=== PATIENT | male | born 1985 | race Caucasian/White ===

== ENCOUNTER 2017-09-13 10:17 | Emergency (ER) | payer SELFPAY ==
--- NOTE | 2017-09-13 10:30 | EDM.PDOC ---
ED HPI GENERAL MEDICAL PROBLEM - General Chief Complaint: Genitourinary Problem Stated Complaint: TESTICAL ISSUE Time Seen by Provider: 09/13/17 10:30 Source of Information: Reports: Patient History Limitations: Reports: No Limitations - History of Present Illness INITIAL COMMENTS - FREE TEXT/NARRATIVE: 31-year-old male presents to the ED with right-sided testicular pain. He's had this problem off and on for the last couple of years. Is seen multiple providers. He's been given various diagnoses including epididymitis varicoceles and intermittent torsion of the testicle. He has been treated with antibiotics in the past. He states that he noticed his testicle area becoming more painful earlier this morning. 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 He states the right testicle is very tender to touch especially with walking or bumping. Similar to the pain that he's experienced in the past. Pain radiates up into his right inguinal area. No associated nausea vomiting fever chills. He has no dysuria urgency. No pain in the left testicle. States the pain is similar when he is exposed to in the past. Onset: Today Onset Date: 09/13/17 Onset Time: 08:00 Duration: Hour(s): Location: Reports: Other (Right hemiscrotum. 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 Pelvic Pain Score (Numeric/FACES): 8 - Related Data Allergies Allergy/AdvReac Type Severity Reaction Status Date / Time Sulfa (Sulfonamide Allergy Rash Verified 09/13/17 10:27 Antibiotics) Home Meds: Home Meds Ciprofloxacin HCl [Cipro] 500 mg PO BID #20 tablet 09/13/17 [Rx] Doxycycline [Vibramycin] 100 mg PO DAILY #84 tab 09/13/17 [Rx] Multivitamin [Multi-Day Vitamins] 1 tab PO DAILY 09/13/17 [History] Past Medical History Gastrointestinal History: Reports: Other (See Below) Other Genitourinary History: intermittent testicle toersion - Past Surgical History GI Surgical History: Reports: Hernia, Inguinal Other GI Surgeries/Procedures: left inguinal hernia repair Musculoskeletal Surgical History: Reports: Other (See Below) Other Musculoskeletal Surgeries/Procedures:: tendon repair of left hand Social & Family History - Family History Family Medical History: Noncontributory - Tobacco Use Smoking Status *Q: Never Smoker - Caffeine Use Caffeine Use: Reports: Coffee - Recreational Drug Use Recreational Drug Use: No - Living Situation & Occupation Living situation: Reports: Occupation: Employed ED ROS GENERAL - Review of Systems Review Of Systems: See Below Constitutional: Denies: Fever, Chills, Malaise, Weakness, Decreased Appetite, Weight Loss HEENT: Reports: No Symptoms Respiratory: Reports: No Symptoms Cardiovascular: Reports: No Symptoms Endocrine: Reports: No Symptoms GI/Abdominal: Reports: Other (Some discomfort in the ) : Reports: Other (Pain right testicle). Denies: Discharge, Flank Pain, Frequency, Hematuria, Pain, Urgency, Urinary Retention Musculoskeletal: Reports: No Symptoms ( see history present illness) Skin: Reports: No Symptoms Neurological: Reports: No Symptoms Psychiatric: Reports: No Symptoms Hematologic/Lymphatic: Reports: No Symptoms Immunologic: Reports: No Symptoms ED EXAM, RENAL/ - Physical Exam Exam: See Below Exam Limited By: No Limitations General Appearance: Alert, WD/WN, Anxious, Mild Distress Respiratory/Chest: No Respiratory Distress, Lungs Clear, Normal Breath Sounds, No Accessory Muscle Use, Chest Non-Tender Cardiovascular: Normal Peripheral Pulses, Regular Rate, Rhythm, No Edema, No Gallop, No Murmur, No Rub GI/Abdominal: Normal Bowel Sounds, Soft, Non-Tender, No Organomegaly, No Distention, No Abnormal Bruit, No Mass, Pelvis Stable, Other (No inguinal hernia.) (Male) Exam: No Hernia, Cremasteric Reflex, Testicular Tenderness (R) ( Patient has a very tender inferior pole of the right epididymis. The testicle itself is only mildly tender to palpation. The lie of the testicle is vertical and normal. There is no obvious varicocele or hydrocele evident. Ultrasound carried out reveals homogeneous appearance of the testicle. There is definite thickening and edema of the lower pole of the epididymis but normal superior pole of the epididymis on ultrasound. Fluid within the scrotal sac no hydroceles appreciated. No varicoceles identified. Diagnosis acute recurrent epididymitis right side) Back Exam: Normal Inspection, Full Range of Motion. No: CVA Tenderness (L), CVA Tenderness (R) Extremities: Normal Inspection, Normal Range of Motion, Non-Tender, No Pedal Edema, Normal Capillary Refill Neurological: Alert, Oriented, CN II-XII Intact, Normal Cognition Psychiatric: Normal Affect, Normal Mood Skin Exam: Warm, Dry, Intact, Normal Color, No Rash Course - Vital Signs Last Recorded V/S: Last Vital Signs Temp 36.6 C 09/13/17 10:23 Pulse 92 09/13/17 10:23 Resp 20 09/13/17 10:23 BP 144/95 H 09/13/17 10:23 Pulse Ox 99 09/13/17 10:23 - Radiology Interpretation Free Text/Narrative:: 31-year-old male presents to the ED with right-sided scrotal pain. Is able to localize it very well to the inferior pole of his right epididymis. Clinically he is developed recurrent epididymitis. He does not have any evidence of testicular torsion. He has good blood flow to the testicle on Doppler ultrasound performed at the bedside by me. Testicular has a normal homogeneous texture without any signs of cancer or abnormalities. The superior pole of the epididymis is also within normal limits. Treatment is to be 6 weeks of antibiotics. 10 days of Cipro 500 mg twice a day and 6 weeks of doxycycline 100 mg twice a day to try and bring this chronic infection under control. The source of the infection is going to be his prostate gland. Patient counseled at length. Follow-up if not markedly improved in 10 days' time or sooner if the pain worsens. Departure - Departure Time of Disposition: 10:49 Disposition: Home, Self-Care 01 Condition: Fair Clinical Impression: Epididymitis - Discharge Information *PRESCRIPTION DRUG MONITORING PROGRAM REVIEWED*: Not Applicable *COPY OF PRESCRIPTION DRUG MONITORING REPORT IN PATIENT MALENA: Not Applicable Prescriptions: Ciprofloxacin HCl [Cipro] 500 mg PO BID #20 tablet Doxycycline [Vibramycin] 100 mg PO DAILY #84 tab Instructions: Epididymitis Referrals: PCP,None [Primary Care Provider] - Forms: ED Department Discharge Additional Instructions: Evaluation the emergency room today in regards to acute onset of right testicular pain. Examination reveals engorgement and pain well localized to the inferior pole of the right testicle or the epididymis. The testicle itself is not swollen. Ultrasound done at the bedside reveals a normal testicle with normal blood flow with no signs of torsion. The epididymis in. Pole is markedly edematous and swollen. Superior pole is normal. History suggests you've had this problem recurrently which suggests recurrent epididymitis. Note the primary problem is usually prostatitis meaning that there is infection in the prostate gland which makes most of the secretions of semen. The infection and travels retrograde through the vas deferens down towards the testicle and causes recurrent infections. Sometimes it flares up like a forest fire and other times is more like a smoldering infection treatment is therefore long- term antibiotic with doxycycline 100 mg twice daily for the next 6 weeks. I'll take these medications with food. Second antibiotic is Cipro 500 mg twice daily for the next 10 days which works a bit faster to bring the infection under control. I therefore do not believe that you have ever had a problem with true torsion of the testicle.
== END 2017-09-13 11:05 | disposition home or self-care (01) ==
LOC: JD.ED 10:17
DX: N45.1 Epididymitis (principal); Z88.2 Allergy status to sulfonamides; Z79.899 Other long term (current) drug therapy
CPT/HCPCS: 99283; 99284

== ENCOUNTER 2021-06-17 19:51 | Emergency (ER) | payer OTHER | END 2021-06-17 22:10 | disposition home or self-care (01) | LOC: JD.ED 19:51 | DX: S50.311A Abrasion of right elbow, initial encounter (principal); S80.211A Abrasion, right knee, initial encounter; Z88.2 Allergy status to sulfonamides; Z79.899 Other long term (current) drug therapy; Y04.8XXA Assault by other bodily force, initial encounter | CPT/HCPCS: 99283; 99284 ==